=== PATIENT | female | born 1940 | race Caucasian/White ===

== ENCOUNTER → 2017-01-25 | Outpatient (CLI) | payer OTHER, BC | LOC: RAD 12:05 | DX: R06.00 Dyspnea, unspecified (principal) ==

== ENCOUNTER → 2017-05-17 | Outpatient (CLI) | payer OTHER, BC | LOC: PUL 09:14 | DX: J84.10 Pulmonary fibrosis, unspecified (principal); J45.40 Moderate persistent asthma, uncomplicated ==

== ENCOUNTER → 2018-04-11 | Outpatient (CLI) | payer OTHER, BC | LOC: MRI 14:43 | DX: M47.816 Spondylosis without myelopathy or radiculopathy, lumbar region (principal); M48.062 Spinal stenosis, lumbar region with neurogenic claudication; M51.26 Other intervertebral disc displacement, lumbar region; M43.16 Spondylolisthesis, lumbar region; M43.17 Spondylolisthesis, lumbosacral region; M53.3 Sacrococcygeal disorders, not elsewhere classified ==